=== PATIENT | male | born 1985 | race African-American/Black ===

== ENCOUNTER 2020-10-27 09:31 | Emergency (ER) | payer SELFPAY ==
[~2020-10-27] VITALS: Ht 182.9 cm; Wt 73.0 kg
[2020-10-27] MEDS ORDERED: BACITRACIN ZINC OINT 500U/GM, 0.9 GM ONE (10:10)
--- NOTE | 2020-10-27 10:17 | NUR ---
BILATERAL WOUNDS ON DORSUM OF TOES THAT STARTED DEVELOPING 3 WEEKS AGO. TO BE CLEANED, BACITRACIN APPLIED AND NON ADHERING DRESSING PLACED
[2020-10-27 10:51] VITALS: BP 112/67
[2020-10-27] MEDS ORDERED: SODIUM CHLORIDE FLUSH 10ML SYR IVF ONE (11:00)
[2020-10-27] MEDS ORDERED: ONDANSETRON 2MG/ML, 2ML IVPush ONE (11:00)
[2020-10-27] MEDS ORDERED: KETOROLAC 30 MG/1 ML IVPush ONE (11:00)
--- NOTE | 2020-10-27 11:08 | NUR ---
Patient given discharge instructions and they have confirmed that they understand the instructions. Patient ambulatory with steady gait. No questions at time of discharge.
== END 2020-10-27 11:10 | disposition home or self-care (01) ==
LOC: ED 10:07
DX: B35.3 Tinea pedis (principal); L03.116 Cellulitis of left lower limb; L03.115 Cellulitis of right lower limb
CPT/HCPCS: 99283

== ENCOUNTER 2020-11-17 10:00 | Emergency (ER) | payer SELFPAY ==
[~2020-11-17] VITALS: Ht 182.9 cm; Wt 71.2 kg
[2020-11-17 10:08] VITALS: BP 114/71
== END 2020-11-17 11:22 | disposition home or self-care (01) ==
LOC: ED 10:18
DX: L03.116 Cellulitis of left lower limb (principal); L03.115 Cellulitis of right lower limb; B35.3 Tinea pedis
CPT/HCPCS: 82962; 99283